=== PATIENT | female | born 1990 | race Caucasian/White ===

== ENCOUNTER 2016-11-24 16:39 | Emergency (ER) | payer OTHER ==
--- NOTE | 2016-11-24 18:20 | DIAGNOSTIC IMAGING REPORT ---
PROCEDURE: XR CHEST 2 VIEW INDICATION: CHEST PAIN TECHNIQUE: Two views. COMPARISON: None. FINDINGS: The cardiomediastinal contour and central vasculature are within normal limits. The lungs are clear without focal consolidation, pleural effusion, or pneumothorax. The visualized osseous structures are intact. IMPRESSION: 1. Normal chest.
--- NOTE | 2016-11-24 18:30 | ED MAR SUMMARY ---
..... Medication Administration Record [facility] [address], [place] [id number] Patient: PEACE REYES Josseline Visit ID: [id number] 26y, F Weight: 53.0 kg Height/Length: 66 in BMI: 18.9 ALLERGIES: Amoxicillin, Sulfa Antibiotics
--- NOTE | 2016-11-24 18:30 | ED CLINICAL REPORT ---
Clinical Report - Physicians/Mid Levels [facility] [address] [place] [address] 11/24/2016 16:41 [id number] Time Seen: 17:02 Nov 24 2016. Arrived- By private vehicle. Historian- patient. HISTORY OF PRESENT ILLNESS Chief Complaint: CHEST PAIN. This started 5 days [employer] and is still present. It is described as located in the central chest area. No nausea, vomiting, difficulty breathing or diaphoresis. (patient reports chest pain off and on for last 5 days, intermittent aching central episodes. Patient reports distant chest pain approximately2-3 years previously, had a Holter monitor, with no findings. Patient denies any recent illness, cough, nausea, vomiting. Patient reports pain is not exacerbated or improved by anything. Denies history of family connective tissue disorders, family history of early sudden , or family history of primary heart attack. Reports her history had a history of tachycardia as a child, and had to have procedure completed for such, she is now better.). REVIEW OF SYSTEMS No chills, cough, pedal edema, fainting episodes or headache. No sore throat, abdominal pain or black stools. All systems otherwise negative, except as recorded above. PAST HISTORY on menses now. SOCIAL HISTORY Never smoker. No alcohol use or drug use. ADDITIONAL NOTES The nursing notes have been reviewed. PHYSICAL EXAM Vital Signs: 11/24/2016 16:48 BP: 106/82. HR: 84. RR: 16. O2 saturation: 99%. Temp: 98.3 F. Pain level now: 310. Appearance: Alert. No acute distress. ENT: Ears normal. Neck: Normal inspection. No meningeal signs or lymphadenopathy. CVS: Normal heart rate and rhythm. Heart sounds normal. Respiratory: No respiratory distress. Breath sounds normal. Chest nontender. No accessory muscle use. Abdomen: Soft and nontender. Bowel sounds normal. No abdominal tenderness. Back: Normal external inspection. Skin: Skin warm. Normal skin color. Neuro: Oriented X 3. No motor deficit. LABS, X-RAYS, AND EKG EKG: EKG time: (4231). No acute process. No acute ischemia. Rate: 79. Normal P waves. Normal PETER. Normal QRS complex. Normal ST and T waves and QT. The study has been interpreted contemporaneously. The study has been independently viewed by me. The EKG appears to be a good tracing. I agree with and confirm the computer reading of the EKG. Chest X-ray: (IMPRESSION: 1. Normal chest. Electronically Final signed by:Vanessa Gibson MD 11/24/2016 6:20:36 PM). Laboratory Tests: CBC w Diff: (RUPERTO: 11/24/2016 17:07) ( MsgRcvd 11/24/2016 17:36) Final results Test Result Flag Units (Reference) WHITE BLOOD COUNT 5.4 K/uL (4.5-11.5) RED BLOOD COUNT 3.58 L M/uL (4.00-5.20) HEMOGLOBIN 10.9 L gm/dL (12.0-16.0) HEMATOCRIT 33.0 L % (36.0-46.0) MEAN CELL VOLUME 92 fL (80-100) MEAN CORPUSCULAR HGB 31 pg (26-34) MEAN CORPUSCULAR HGB CONC 33 g/dL (31-37) RED CELL DISTRIBUTION WIDTH 14.6 % (11.6-14.8) PLATELET COUNT 260 K/uL (150-400) NEUTROPHIL % 51.8 % (50-75) LYMPH % 31.9 % (25-40) MONO % 14.3 H % (3-14) EOSINOPHIL % 1.6 % (0-4) BASOPHIL % 0.4 % (0-2) CHEM 13 PANEL: (RUPERTO: 11/24/2016 17:07) ( MsgRcvd 11/24/2016 17:50) Final results Test Result Flag Units (Reference) GLUCOSE 84 mg/dL (70-110) BUN 7 mg/dL (7-18) CREATININE 0.7 mg/dL (0.6-1.3) Estimated GFR >60 mL/min Estimated GFR- >60 mL/min Note: Persistent reduction over 3 months in eGFR<60 mL/min/1.73 m2 defines CKD. Patients with eGFR values>=60 mL/min/1.73 m2 may also have CKD if evidence ofpersistent proteinuria. Additional information may be foundat www.kidney.org. SODIUM 142 mmol/L (136-145) POTASSIUM 3.8 mmol/L (3.5-5.1) CHLORIDE 107 mmol/L (98-107) CARBON DIOXIDE 26 mmol/L (21-32) CALCIUM 8.7 mg/dL (8.5-10.1) TOTAL PROTEIN 7.5 g/dL (6.4-8.2) ALBUMIN 3.8 g/dL (3.3-5.0) BILIRUBIN, TOTAL 0.4 mg/dL (0.0-1.0) ALKALINE PHOSPHATASE 76 U/L (46-116) AST (SGOT) 16 U/L (15-37) ALT (SGPT) 21 U/L (12-78) CPK 63 U/L (24-260) MAGNESIUM 2.2 mg/dL (1.8-2.4) TROPONIN I <0.05 L ng/mL (0.00-1.5) TROPONIN REFERENCE RANGE:<0.1 NEGATIVE0.1-1.5 INDETERMINANT>1.5 POSITIVE . PROGRESS AND PROCEDURES Course of Care: Here in the patient with minimal chest pain. No fevers, no shortness of breath no other associated symptoms. Patient with low risk factor. Also concern negative, less likely PE. Patient has follow-up within the next 48 hours . Pt is with neg work up here, neg cxr, ekg, cardiac panel, sx ongoing for > 2 days, and thus less likely of cardiac pathology. NO risk factors, no ivda. Patient is stable. Physical exam findings are improved. Symptoms better. Patient/family counseled. Differential Diagnosis: I considered muscle strain, costochondritis, pleurisy, epidemic pleurodynia, intercostal neuritis, myocardial infarction, intermediate coronary syndrome, aortic dissection, pulmonary embolism, gastroesophageal reflux disease and esophagitis as a possible cause of chest pain in this patient. This is a partial list of diagnoses considered. Disposition: Discharged. CLINICAL IMPRESSION Atypical chest pain INSTRUCTIONS Avoid stimulants (such as cigarettes, coffee, cold medicines, sinus medicines, street drugs). Follow a low salt diet. Do not smoke. No alcohol. Warnings: Further evaluation is necessary. OTC Medications: Take OTC medications according to label instructions. Available over the counter. Acetaminophen (available over the counter): take according to label instructions. Motrin (available over the counter): take according to label instructions. Follow-up: Follow up with your doctor in three days. (Electronically signed by Estela Alex P.A.-C 11/24/2016 18:24)
--- NOTE | 2016-11-24 18:30 | ED DISCHARGE INSTRUCTIONS ---
Patient: PEACE REYES General Instructions [facility] VisitID: [id number] [place] [address] 26y, F Registration Date/Time: 11/24/2016 Atypical chest pain INSTRUCTIONS Avoid stimulants (such as cigarettes, coffee, cold medicines, sinus medicines, street drugs). Follow a low salt diet. Do not smoke. No alcohol. Warnings: Further evaluation is necessary. OTC Medications: Take OTC medications according to label instructions. Available over the counter. Acetaminophen (available over the counter): take according to label instructions. Motrin (available over the counter): take according to label instructions. Follow-up: Follow up with your doctor in three days. ADDITIONAL INFORMATION Chest Pain, Noncardiac Based on your visit today, the exact cause of your chest pain is not certain. Your condition does not seem serious and your pain does not appear to be coming from your heart. However, sometimes the signs of a serious problem take more time to appear. Therefore, please watch for the warning signs listed below. Home Care: Rest today and avoid strenuous activity. Take any prescribed medicine as directed. Follow Up with your doctor or this facility as instructed or if you do not start to feel better within 24 hours. Get Prompt Medical Attention if any of the following occur: A change in the type of pain: if it feels different, becomes more severe, lasts longer, or begins to spread into your shoulder, arm, neck, jaw or back Shortness of breath or increased pain with breathing Cough with dark colored sputum (phlegm) or blood Weakness, dizziness, or fainting Fever of 100.4F (38C) or higher, or as directed by your healthcare provider Swelling, pain or redness in one leg Chest Pain, Uncertain Cause Chest pain can happen for a number of reasons. Sometimes the cause can not be determined. If yourcondition does not seem serious, and your pain does not appear to be coming from your heart, your doctor may recommend watching it closely. Sometimes the signs of a serious problem take more time to appear. Therefore, watch for the warning signs listed below. Home care After your visit, follow these recommendations: Rest today and avoid strenuous activity. Take any prescribed medicine as directed. Follow-up care Follow up with your doctor or this facility as instructed or if you do not start to feel better within 24 hours. Call 911 Get immediate medical attention if any of the following occur: A change in the type of pain: if it feels different, becomes more severe, lasts longer, or begins to spread into your shoulder, arm, neck, jaw or back Shortness of breath or increased pain with breathing Weakness, dizziness, or fainting Rapid heart beat Get prompt medical attention Call your doctor right away if any of the following occur: Cough with dark colored sputum (phlegm) or blood Fever of 100.4F(38C) or higher, or as directed by your health care provider Swelling, pain or redness in one leg You have been given the following additional information: Chest Pain, Noncardiac Chest Pain, Uncertain Cause (Electronically signed by Estela Alex P.A.-C 11/24/2016 18:24)
--- NOTE | 2016-11-24 18:30 | ED NURSING NOTES ---
Clinical Report - Nurses [facility] [address] [place] [address] 11/24/2016 16:41 Patient: PEACE REYES TRIAGE Triage time 1645. Acuity: LEVEL 3. Chief Complaint: CHEST PAIN. --16:58 Radha Grimes R.N. 16:48 11/24/16. BP: 106/82. HR: 84. RR: 16. O2 saturation: 99%. Temp: 98.3 F. Pain level now: 09/06. --16:58 Radha Grimes R.N. Weight: 53 kg stated. Height/Length: 66 inches Per Patient. BMI: 18.9. --16:48 Radha Grimes R.N. Medications None. --16:50 Radha Grimes R.N. Allergies Amoxicillin.(rash) Sulfa Antibiotics. (was lightheaded) --16:50 Radha Grimes R.N. History Arrived by private vehicle. Historian: patient. Accompanied by father. Primary physician (harshad). Onset. (wed off and on, also had previous chest pain with EKG 's and a holter monitor). No difficulty breathing, sweating episodes, nausea or vomiting. PAST MEDICAL HX: ( ovarian cyst, heart palpitations,). SURGERY HX: ( ovarian cyst). SOCIAL HX: Never smoker. No alcohol use or drug use. --16:58 Radha Grimes R.N. Interventions ID band on patient. To treatment room. --16:58 Radha Grimes R.N. PHYSICAL ASSESSMENT 16:45. Ambulatory to room. Patient gowned. GENERAL / NEURO / PSYCH: Alert. Oriented X 4. Appears anxious. RESPIRATORY: Respirations not labored. Chest wall tenderness (mid sternal chest pain and left arm pain). CVS: Pulses within normal limits. Capillary refill less than 2 seconds. GI / : Abdomen soft. EXTREMITIES: No lower extremity edema. SKIN: Skin is warm and dry. Skin is non-tender. --16:56 Radha Grimes R.N. NURSING PROGRESS NOTES 16:45. Oxygen administered. property assessment monitor placed on patient. Patient gowned. Head of bed elevated. Reassurance given. Patient identifiers checked. Call light placed in reach. Side rails up. Bed placed in lowest position. Patient ready for evaluation- chart flagged. --16:54 Radha Grimes R.N. 16:54. EKG time: (1654). EKG was ordered, performed by anjel hernandez and shown to the ED physician and PA. done by TIFFANIE Hyatt. --16:55 Radha Grimes R.N. 17:09 11/24/2016 Site #1 started via IV in the left hand with an 22g angiocath, with aseptic technique and good blood return; one attempt. Blood drawn: rainbow set. Labeled in the presence of the patient and sent to the lab. Saline lock flushed with 10 mL saline. --17:24 Radha Grimes R.N. 17:09. ( IV started, blood to lab). --17:25 Radha Grimes R.N. 17:15. ( Pt ambulated to bathroom, stable on feet, denies pain or SOB. UA obtained - U preg= Neg, EDPA notified). --17:26 Radha Grimes R.N. 17:24. Patient transported to radiology by stretcher with tech. --17:29 Radha Grimes R.N. 17:35. Patient returned from radiology by stretcher with tech. --18:16 Radha Grimes R.N. 18:15 11/24/2016 Site #1 removed upon discharge. Bandaid applied. --18:25 Radha Grimes R.N. 18:15 11/24/2016 IV Saline Lock Drip IV Discontinued: upon discharge. Total amount infused: 0 mL. IV patency established. IV site checked: no pain, redness, or swelling. IV flushed thoroughly. --18:25 Radha Grimes R.N. 18:10 resting quietly,father at bedside, waiting for lab results. --18:29 Radha Grimes R.N. DISPOSITION / DISCHARGE 18:20. Condition at departure: improved and stable. No learning barriers present. Discharge instructions provided and reviewed with the patient and parent. Reviewed medication(s) (Tylenol or Motrin for pain). Patient and parent verbalized understanding. Written instructions provided in Amharic. The patient was discharged home and accompanied by parent. She left the Emergency Department ambulatory and via private vehicle. Parent driving. --18:28 Radha Grimes R.N. 18:15 11/24/16. BP: 94/56. HR: 74. RR: 16. O2 saturation: 100%. Temp: deferred. Pain level now: 07/09. --18:28 Radha Grimes R.N. Locked/Released at 11/24/2016 18:30 by Radha Grimes R.N.
--- NOTE | 2016-11-24 18:30 | ED ORDER SUMMARY ---
..... Patient: PEACE REYES OrderSheet [facility] VisitID: [id number] [place] [address] 26y, F Registration Date/Time: 11/24/2016 ORDER SHEET Weight: 53.0 kg (stated) Allergies: Amoxicillin, Sulfa Antibiotics GENERAL ORDERS: Chest 2V Urgent (16:57 11/24/2016 EKoroleva P.A.-C) (Ack 17:00 KHoerner) (17:29 DDean R.N.) Urine Urgent (16:57 11/24/2016 EKoroleva P.A.-C) (Ack 17:00 KHoerner) (17:23 DDean R.N.) (Cancelled: Other17:23 DDean R.N.) Cardiac Panel Stat (16:57 11/24/2016 EKoroleva P.A.-C) (Ack 17:00 KHoerner) (17:17 KHoerner) POC - Urine hCG (17:23 11/24/2016 DDean R.N. per protocol) (17:23 DDean R.N.) MEDICATION ORDERS: IV FLUIDS: IV Saline Lock (17:24 11/24/2016 DDean R.N. per protocol) (17:25 DDean R.N.) ORDER SHEET NOTES: [Electronically signed by Estela AlexAJennifer-Katheryn (18:24 11/24/2016)] [Electronically signed by Radha Grimes R.N. (18:30 11/24/2016)] [Electronically locked/signed by Radha Grimes R.N. (18:30 11/24/2016)]
--- NOTE | 2016-11-24 18:30 | ED ORDER SUMMARY ---
..... Patient: PEACE REYES OrderSheet [facility] VisitID: [id number] [place] [address] 26y, F Registration Date/Time: 11/24/2016 ORDER SHEET Weight: 53.0 kg (stated) Allergies: Amoxicillin, Sulfa Antibiotics GENERAL ORDERS: Chest 2V Urgent (16:57 11/24/2016 EKoroleva P.A.-C) (Ack 17:00 KHoerner) (17:29 DDean R.N.) Urine Urgent (16:57 11/24/2016 EKoroleva P.A.-C) (Ack 17:00 KHoerner) (17:23 DDean R.N.) (Cancelled: Other17:23 DDean R.N.) Cardiac Panel Stat (16:57 11/24/2016 EKoroleva P.A.-C) (Ack 17:00 KHoerner) (17:17 KHoerner) POC - Urine hCG (17:23 11/24/2016 DDean R.N. per protocol) (17:23 DDean R.N.) MEDICATION ORDERS: IV FLUIDS: IV Saline Lock (17:24 11/24/2016 DDean R.N. per protocol) (17:25 DDean R.N.) ORDER SHEET NOTES: [Electronically signed by Estela AlexAJennifer-Katheryn (18:24 11/24/2016)] [Electronically signed by Radha Grimes R.N. (18:30 11/24/2016)] [Electronically locked/signed by Radha Grimes R.N. (18:30 11/24/2016)]
--- NOTE | 2016-11-24 18:30 | ED CLINICAL REPORT ---
Clinical Report - Physicians/Mid Levels [facility] [address] [place] [address] 11/24/2016 16:41 [id number] Time Seen: 17:02 Nov 24 2016. Arrived- By private vehicle. Historian- patient. HISTORY OF PRESENT ILLNESS Chief Complaint: CHEST PAIN. This started 5 days [employer]IED [employer] and is still present. It is described as located in the central chest area. No nausea, vomiting, difficulty breathing or diaphoresis. (patient reports chest pain off and on for last 5 days, intermittent aching central episodes. Patient reports distant chest pain approximately2-3 years previously, had a Holter monitor, with no findings. Patient denies any recent illness, cough, nausea, vomiting. Patient reports pain is not exacerbated or improved by anything. Denies history of family connective tissue disorders, family history of early sudden , or family history of primary heart attack. Reports her history had a history of tachycardia as a child, and had to have procedure completed for such, she is now better.). REVIEW OF SYSTEMS No chills, cough, pedal edema, fainting episodes or headache. No sore throat, abdominal pain or black stools. All systems otherwise negative, except as recorded above. PAST HISTORY on menses now. SOCIAL HISTORY Never smoker. No alcohol use or drug use. ADDITIONAL NOTES The nursing notes have been reviewed. PHYSICAL EXAM Vital Signs: 11/24/2016 16:48 BP: 106/82. HR: 84. RR: 16. O2 saturation: 99%. Temp: 98.3 F. Pain level now: 310. Appearance: Alert. No acute distress. ENT: Ears normal. Neck: Normal inspection. No meningeal signs or lymphadenopathy. CVS: Normal heart rate and rhythm. Heart sounds normal. Respiratory: No respiratory distress. Breath sounds normal. Chest nontender. No accessory muscle use. Abdomen: Soft and nontender. Bowel sounds normal. No abdominal tenderness. Back: Normal external inspection. Skin: Skin warm. Normal skin color. Neuro: Oriented X 3. No motor deficit. LABS, X-RAYS, AND EKG EKG: EKG time: (0793). No acute process. No acute ischemia. Rate: 79. Normal P waves. Normal PETER. Normal QRS complex. Normal ST and T waves and QT. The study has been interpreted contemporaneously. The study has been independently viewed by me. The EKG appears to be a good tracing. I agree with and confirm the computer reading of the EKG. Chest X-ray: (IMPRESSION: 1. Normal chest. Electronically Final signed by:Vanessa Gibson MD 11/24/2016 6:20:36 PM). Laboratory Tests: CBC w Diff: (RUPERTO: 11/24/2016 17:07) ( MsgRcvd 11/24/2016 17:36) Final results Test Result Flag Units (Reference) WHITE BLOOD COUNT 5.4 K/uL (4.5-11.5) RED BLOOD COUNT 3.58 L M/uL (4.00-5.20) HEMOGLOBIN 10.9 L gm/dL (12.0-16.0) HEMATOCRIT 33.0 L % (36.0-46.0) MEAN CELL VOLUME 92 fL (80-100) MEAN CORPUSCULAR HGB 31 pg (26-34) MEAN CORPUSCULAR HGB CONC 33 g/dL (31-37) RED CELL DISTRIBUTION WIDTH 14.6 % (11.6-14.8) PLATELET COUNT 260 K/uL (150-400) NEUTROPHIL % 51.8 % (50-75) LYMPH % 31.9 % (25-40) MONO % 14.3 H % (3-14) EOSINOPHIL % 1.6 % (0-4) BASOPHIL % 0.4 % (0-2) CHEM 13 PANEL: (RUPERTO: 11/24/2016 17:07) ( MsgRcvd 11/24/2016 17:50) Final results Test Result Flag Units (Reference) GLUCOSE 84 mg/dL (70-110) BUN 7 mg/dL (7-18) CREATININE 0.7 mg/dL (0.6-1.3) Estimated GFR >60 mL/min Estimated GFR- >60 mL/min Note: Persistent reduction over 3 months in eGFR<60 mL/min/1.73 m2 defines CKD. Patients with eGFR values>=60 mL/min/1.73 m2 may also have CKD if evidence ofpersistent proteinuria. Additional information may be foundat www.kidney.org. SODIUM 142 mmol/L (136-145) POTASSIUM 3.8 mmol/L (3.5-5.1) CHLORIDE 107 mmol/L (98-107) CARBON DIOXIDE 26 mmol/L (21-32) CALCIUM 8.7 mg/dL (8.5-10.1) TOTAL PROTEIN 7.5 g/dL (6.4-8.2) ALBUMIN 3.8 g/dL (3.3-5.0) BILIRUBIN, TOTAL 0.4 mg/dL (0.0-1.0) ALKALINE PHOSPHATASE 76 U/L (46-116) AST (SGOT) 16 U/L (15-37) ALT (SGPT) 21 U/L (12-78) CPK 63 U/L (24-260) MAGNESIUM 2.2 mg/dL (1.8-2.4) TROPONIN I <0.05 L ng/mL (0.00-1.5) TROPONIN REFERENCE RANGE:<0.1 NEGATIVE0.1-1.5 INDETERMINANT>1.5 POSITIVE . PROGRESS AND PROCEDURES Course of Care: Here in the patient with minimal chest pain. No fevers, no shortness of breath no other associated symptoms. Patient with low risk factor. Also concern negative, less likely PE. Patient has follow-up within the next 48 hours . Pt is with neg work up here, neg cxr, ekg, cardiac panel, sx ongoing for > 2 days, and thus less likely of cardiac pathology. NO risk factors, no ivda. Patient is stable. Physical exam findings are improved. Symptoms better. Patient/family counseled. Differential Diagnosis: I considered muscle strain, costochondritis, pleurisy, epidemic pleurodynia, intercostal neuritis, myocardial infarction, intermediate coronary syndrome, aortic dissection, pulmonary embolism, gastroesophageal reflux disease and esophagitis as a possible cause of chest pain in this patient. This is a partial list of diagnoses considered. Disposition: Discharged. CLINICAL IMPRESSION Atypical chest pain INSTRUCTIONS Avoid stimulants (such as cigarettes, coffee, cold medicines, sinus medicines, street drugs). Follow a low salt diet. Do not smoke. No alcohol. Warnings: Further evaluation is necessary. OTC Medications: Take OTC medications according to label instructions. Available over the counter. Acetaminophen (available over the counter): take according to label instructions. Motrin (available over the counter): take according to label instructions. Follow-up: Follow up with your doctor in three days. (Electronically signed by Estela Alex P.A.-C 11/24/2016 18:24)
--- NOTE | 2016-11-24 18:30 | ED NURSING NOTES ---
Clinical Report - Nurses [facility] [address] [place] [address] 11/24/2016 16:41 Patient: PEACE REYES TRIAGE Triage time 1645. Acuity: LEVEL 3. Chief Complaint: CHEST PAIN. --16:58 Radha Grimes R.N. 16:48 11/24/16. BP: 106/82. HR: 84. RR: 16. O2 saturation: 99%. Temp: 98.3 F. Pain level now: 09/06. --16:58 Radha Grimes R.N. Weight: 53 kg stated. Height/Length: 66 inches Per Patient. BMI: 18.9. --16:48 Radha Grimes R.N. Medications None. --16:50 Radha Grimes R.N. Allergies Amoxicillin.(rash) Sulfa Antibiotics. (was lightheaded) --16:50 Radha Grimes R.N. History Arrived by private vehicle. Historian: patient. Accompanied by father. Primary physician (harshad). Onset. (wed off and on, also had previous chest pain with EKG 's and a holter monitor). No difficulty breathing, sweating episodes, nausea or vomiting. PAST MEDICAL HX: ( ovarian cyst, heart palpitations,). SURGERY HX: ( ovarian cyst). SOCIAL HX: Never smoker. No alcohol use or drug use. --16:58 Radha Grimes R.N. Interventions ID band on patient. To treatment room. --16:58 Radha Grimes R.N. PHYSICAL ASSESSMENT 16:45. Ambulatory to room. Patient gowned. GENERAL / NEURO / PSYCH: Alert. Oriented X 4. Appears anxious. RESPIRATORY: Respirations not labored. Chest wall tenderness (mid sternal chest pain and left arm pain). CVS: Pulses within normal limits. Capillary refill less than 2 seconds. GI / : Abdomen soft. EXTREMITIES: No lower extremity edema. SKIN: Skin is warm and dry. Skin is non-tender. --16:56 Radha Grimes R.N. NURSING PROGRESS NOTES 16:45. Oxygen administered. monitor car operator placed on patient. Patient gowned. Head of bed elevated. Reassurance given. Patient identifiers checked. Call light placed in reach. Side rails up. Bed placed in lowest position. Patient ready for evaluation- chart flagged. --16:54 Radha Grimes R.N. 16:54. EKG time: (1654). EKG was ordered, performed by anjel hernandez and shown to the ED physician and PA. done by TIFFANIE Hyatt. --16:55 Radha Grimes R.N. 17:09 11/24/2016 Site #1 started via IV in the left hand with an 22g angiocath, with aseptic technique and good blood return; one attempt. Blood drawn: rainbow set. Labeled in the presence of the patient and sent to the lab. Saline lock flushed with 10 mL saline. --17:24 Radha Grimes R.N. 17:09. ( IV started, blood to lab). --17:25 Radha Grimes R.N. 17:15. ( Pt ambulated to bathroom, stable on feet, denies pain or SOB. UA obtained - U preg= Neg, EDPA notified). --17:26 Radha Grimes R.N. 17:24. Patient transported to radiology by stretcher with tech. --17:29 Radha Grimes R.N. 17:35. Patient returned from radiology by stretcher with tech. --18:16 Radha Grimes R.N. 18:15 11/24/2016 Site #1 removed upon discharge. Bandaid applied. --18:25 Radha Grimes R.N. 18:15 11/24/2016 IV Saline Lock Drip IV Discontinued: upon discharge. Total amount infused: 0 mL. IV patency established. IV site checked: no pain, redness, or swelling. IV flushed thoroughly. --18:25 Radha Grimes R.N. 18:10 resting quietly,father at bedside, waiting for lab results. --18:29 Radha Grimes R.N. DISPOSITION / DISCHARGE 18:20. Condition at departure: improved and stable. No learning barriers present. Discharge instructions provided and reviewed with the patient and parent. Reviewed medication(s) (Tylenol or Motrin for pain). Patient and parent verbalized understanding. Written instructions provided in Kazakh. The patient was discharged home and accompanied by parent. She left the Emergency Department ambulatory and via private vehicle. Parent driving. --18:28 Radha Grimes R.N. 18:15 11/24/16. BP: 94/56. HR: 74. RR: 16. O2 saturation: 100%. Temp: deferred. Pain level now: 07/09. --18:28 Radha Grimes R.N. Locked/Released at 11/24/2016 18:30 by Radha Grimes R.N.
--- NOTE | 2016-11-24 18:30 | ED MED RECONCILIATION SUMMARY ---
Patient: PEACE REYES Medication Reconciliation Report [facility] VisitID: [id number] [place] [address] 26y, F Registration Date/Time: 11/24/2016 Weight: 53.0 kg Height/Length: 66 in. BMI: 18.9 ALLERGIES: Amoxicillin, Sulfa Antibiotics The patient's Home Medications are listed below: NONE. The source(s) of the original Home Medication information: Not obtained. The following Medications were given to the patient in the Emergency Department: None. The following Medications were prescribed to the patient: Take OTC medications according to label instructions. Available over the counter. -- Estela Alex, P.A.-C Acetaminophen (available over the counter): take according to label instructions. -- Estela Alex, P.A.-C Motrin (available over the counter): take according to label instructions. -- Estela Alex, P.A.-C
--- NOTE | 2016-11-24 18:30 | ED MED RECONCILIATION SUMMARY ---
Patient: PEACE REYES Medication Reconciliation Report [facility] VisitID: [id number] [place] [address] 26y, F Registration Date/Time: 11/24/2016 Weight: 53.0 kg Height/Length: 66 in. BMI: 18.9 ALLERGIES: Amoxicillin, Sulfa Antibiotics The patient's Home Medications are listed below: NONE. The source(s) of the original Home Medication information: Not obtained. The following Medications were given to the patient in the Emergency Department: None. The following Medications were prescribed to the patient: Take OTC medications according to label instructions. Available over the counter. -- Estela Alex, P.A.-C Acetaminophen (available over the counter): take according to label instructions. -- Estela Alex, P.A.-C Motrin (available over the counter): take according to label instructions. -- Estela Alex, P.A.-C
--- NOTE | 2016-11-24 18:30 | ED MAR SUMMARY ---
..... Medication Administration Record [facility] [address] [place] [id number] Patient: PEACE REYES Josseline Visit ID: [id number] 26y, F Weight: 53.0 kg Height/Length: 66 in BMI: 18.9 ALLERGIES: Amoxicillin, Sulfa Antibiotics
== END 2016-11-24 18:20 | disposition home or self-care (01) ==
LOC: ED SRH 16:39
DX: R07.89 Other chest pain (principal); Z88.2 Allergy status to sulfonamides; Z88.1 Allergy status to other antibiotic agents
CPT/HCPCS: 90100; 90616; 92610; 92720; 95059